=== PATIENT | female | born 1975 ===

== ENCOUNTER 2025-03-08 01:16 | Outpatient (CLI) | payer OTHER, SELFPAY ==
[2025-03-08] MEDS: Inhaler, Assist Device 1 EACH MC (16:29)
[2025-03-08] MEDS: Levalbuterol HFA 15 GM INH 4 PUFF IH (16:30)
--- NOTE | 2025-03-13 13:42 | PFT_ITS ---
Date of service: 03/08/25 Time of Service: 14:41 Pulmonary Function Test Result Indications: Dyspnea Impression 1. Good patient effort was noted. ATS standards for reproducibility were met. She was unable to complete DLCO testing 2. The pattern of the flow volume loop is consistent with a variable extra- thoracic obstruction (flattening of inspiratory curve). Clinical correlation is recommended 3. Spirometry showed a reduced FEV1:FVC ratio relative to prodicted and a mild reduction in midflows. This can be seen with mild obstructive lung disease 4. Following the administration of a bronchodilator there was not a significant response 4. TLC was normal. No evidence of restrictive lung disease
== END 2025-03-08 01:17 | disposition home or self-care (01) ==
LOC: RT 01:16
PROVIDERS: PCP Registered Nurse; Visit Provider Internal Medicine Pulmonary Disease
DX: R06.00 Dyspnea, unspecified (principal); J44.9 Chronic obstructive pulmonary disease, unspecified
CPT/HCPCS: 94060; 94726